=== PATIENT | female | born 1965 | race Caucasian/White ===

== ENCOUNTER 2023-05-25 23:00 | Emergency (ER) | payer OTHER, SELFPAY ==
[2023-05-25 23:04] VITALS: BP 176/99; PULSE 85; RESP 18; TEMP 36.4; O2SAT 87; BMI 21.1
--- NOTE | 2023-05-25 23:10 | XRR_ITS ---
PROCEDURE INFORMATION: Exam: XR Chest Exam date and time: 05/25/2023 11:16 PM Age: 58 years old Clinical indication: Shortness of breath; Additional info: SOB TECHNIQUE: Imaging protocol: Radiologic exam of the chest. Views: 1 view. COMPARISON: No relevant prior studies available. FINDINGS: Lungs: Hyperaerated lungs consistent with moderate to severe COPD . Pleural spaces: Unremarkable. No pleural effusion. No pneumothorax. Heart/Mediastinum: Unremarkable. No cardiomegaly. Bones/joints: Idiopathic S-shaped scoliosis. XR/XR chest 1V portable [id number] IMPRESSION: Hyperaerated lungs consistent with moderate to severe COPD .
--- NOTE | 2023-05-25 23:10 | ECG_ITS ---
[facility] Test Date: 2023-05-25 Pat Name: Esther Puckett Department: Room: Gender: Female Security Systems Specialist: : [id number] Requested By: Ruben Chan Order Number: [id number] Nneka MD: Trace Landers M.D. Measurements Intervals [place] Rate: 74 P: 82 NE: 131 QRS: 59 QRSD: 91 T: 57 QT: 383 QTc: 427 Interpretive Statements SINUS RHYTHM POSSIBLE LEFT ATRIAL ENLARGEMENT [-0.1mV P-WAVE IN V1/V2] SEPTAL MYOCARDIAL INFARCTION , OF INDETERMINATE AGE [40+ ms Q WAVE IN V1/V2] No previous ECG available for comparison Electronically Signed On 05-25-2023 23:36:59 CDT by Trace Landers M.D. [id number]
--- NOTE | 2023-05-25 23:16 | W.ED.GENADLT ---
HPI - General Adult General: Chief complaint: General Medical Stated complaint: high bp, fast HR Time Seen by Provider: 05/25/23 23:01 Source: patient Mode of arrival: ambulatory Limitations: no limitations History of Present Illness: 58-year-old female states that over the last week she has had a cough along with some nasal congestion. She was seen today diagnosed with viral URI but states her blood pressures also been running high and that this got her concerned. She denies any chest pain she has had some palpitations at times. Denies any vomiting or diarrhea. Associated symptoms: Deny chest pain, dyspnea, headache(s), nausea, rash or vomiting Review of Systems Const: Denies: fever(s), chills, body aches or change in appetite Eyes: Denies: eye discomfort ENMT: Reports: nasal congestion; Denies: throat pain or dental pain Card: Denies: chest pain Resp: Denies: dyspnea GI: Denies: abdominal pain, nausea, vomiting or diarrhea : Denies: dysuria Musc: Denies: neck pain or back pain Skin/Breast: Denies: rash Neuro: Denies: headache(s) PFSH ED PFSH: Social History Smoking and tobacco/nicotine status: current every day tobacco/nicotine user Physical Exam Const: COMMON NORMALS: no acute distress, patient oriented x3 and healthy appearing HENMT: COMMON NORMALS: normocephalic and atraumatic HEAD & SCALP: normocephalic and atraumatic Eye: COMMON NORMALS: Equal, round and reactive pupils present and EOMs intact bilaterally PUPIL: Yes Equal, round and reactive pupils present Neck/C-Spine: COMMON NORMALS: full ROM and supple Chest: COMMONS NORMALS: normal inspection of the chest and normal palpation of entire chest wall Resp: COMMON NORMALS: normal respiratory effort, No retractions, No use of accessory muscles and clear to auscultation bilaterally AUSCULTATION: clear to auscultation bilaterally Cardio: COMMON NORMALS: regular rate, regular rhythm and No murmurs present (Cardio) RATE: regular rate RHYTHM: regular rhythm GI: COMMON NORMALS: Normal to inspection, nondistended, normoactive bowel sounds present, Soft to palpation, non-tender and no masses PALPATION: Yes Soft to palpation Extremity: COMMON NORMALS: normal to inspection and full ROM Neuro: COMMON NORMALS: patient oriented x3, moves all extremities and no focal motor deficits Psych: COMMON NORMALS: mental status grossly normal, Normal thought process present and cooperative THOUGHT PROCESS: Normal thought process present Skin: COMMON NORMALS: no rashes or lesions noted and no wounds GENERAL SKIN EXAM: no rashes or lesions noted Course Vital Signs: Vital signs: Vital Signs Temperature 97.5 F L 05/25/23 23:04 Pulse Rate 82 05/26/23 00:06 Respiratory Rate 16 05/26/23 00:06 Blood Pressure 176/99 05/25/23 23:04 Pulse Oximetry 93 05/26/23 00:06 Oxygen Delivery Me thod Nasal Cannula 05/26/23 00:06 Oxygen Flow Rate 2 05/26/23 00:06 [facility] - General Adult Medical Decision Making Patient presents with hypertension her blood pressure here is improved blood work EKG and x-ray showed no acute abnormalities she likely has undiagnosed COPD she is a longtime smoker inform her she needs to try to quit smoking did discharge her on albuterol gave her Decadron here no signs of pneumonia we will get her follow-up with a PCP she is to take a log of her blood pressure as well return if worsening. Medical Records I reviewed the patient's medical records. Lab Data I reviewed the patient's lab results. 05/25/23 23:50 05/25/23 23:50 Radiology Impressions Chest X-Ray 05/25/23 23:10 IMPRESSION: Hyperaerated lungs consistent with moderate to severe COPD . Laboratory Results WBC 8.00 10^3/uL (3.29-11.43) 05/25/23 23:50 RBC 5.78 10^6/uL (3.85-5.65) H 05/25/23 23:50 Hgb 11.50 g/dL (11.27-16.99) 05/25/23 23:50 Hct 40.0 % (36-47) 05/25/23 23:50 MCV 69.2 fl (85-98) L 05/25/23 23:50 MCH 19.9 pg (27-33) L 05/25/23 23:50 MCHC 28.8 g/dL (30-55) L 05/25/23 23:50 RDW 20.7 % (12.1-15.1) H 05/25/23 23:50 Plt Count 248 10^3/cmm (157-399) 05/25/23 23:50 MPV 9.8 fL (7.4-10.4) 05/25/23 23:50 Neut % (Auto) 70.7 % 05/25/23 23:50 Lymph % (Auto) 20.3 % 05/25/23 23:50 [place] % (Auto) 7.4 % 05/25/23 23:50 Eos % (Auto) 0.9 % 05/25/23 23:50 Baso % (Auto) 0.6 % 05/25/23 23:50 Neut # (Auto) 5.66 10^3/uL (1.8-7.7) 05/25/23 23:50 Lymph # (Auto) 1.6 10^3/uL (0.8-4.8) 05/25/23 23:50 [place]ner # (Auto) 0.6 10^3/uL (0.2-0.9) 05/25/23 23:50 Eos # (Auto) 0.1 10^3/uL (0.0-0.8) 05/25/23 23:50 Baso # (Auto) 0.1 10^3/uL (0.0-0.1) 05/25/23 23:50 Nucleated RBC % (auto) 0 % 05/25/23 23:50 Nucleated RBCs # 0.0 /100WBC 05/25/23 23:50 Sodium 138 mmol/L (136-145) 05/25/23 23:50 Potassium 3.9 mmol/L (3.5-5.1) 05/25/23 23:50 Chloride 99 mmol/L (98-107) 05/25/23 23:50 Carbon Dioxide 31 mmol/L (22-29) H 05/25/23 23:50 Anion Gap 11.9 (5-19) 05/25/23 23:50 BUN 14 mg/dL (8-23) 05/25/23 23:50 Creatinine 0.8 mg/dL (0.5-0.9) 05/25/23 23:50 GFR Calculation 73.2 mL/min (90-130) L 05/25/23 23:50 Glucose 106 mg/dL (65-115) 05/25/23 23:50 Calculated Osmolality 287 mOsm/kg (285-295) 05/25/23 23:50 Calcium 9.7 mg/dL (8.5-10.5) 05/25/23 23:50 All radiology interpretation(s) finalized by discharge Discharge Plan Discharge Patient Disposition: Home Clinical Impression: Viral upper respiratory tract infection with cough, Hypertension Condition: Stable Prescriptions: New Norvasc 5 mg tablet 5 mg PO DAILY Qty: 30 0RF albuterol sulfate 90 mcg/actuation HFA aerosol inhaler 2 inh INHALATION Q6H PRN (Reason: shortness of breath or wheezing) Qty: 8 0RF Discharge Orders: Discharge ED (Routine); Ordered 05/26/23 Ordered By: Ruben Chan Discharge Diet: Advance as tolerated Discharge Activity: Resume usual activity Patient Instructions: Upper Respiratory Infection (ED), Hypertension (ED) Coding Level of Care Code ED [place] for Cara Blanton
[2023-05-25] MEDS: hyDRALAzine 20 mg/mL INJ 1 mL 10 MG IVP (23:53)
[2023-05-25 23:57] LABS: Basophils # 0.1 10^3/uL (0.0-0.1); Basophils % 0.6 %; Eosinophils # 0.1 10^3/uL (0.0-0.8); Eosinophils % 0.9 %; Lymphocytes # 1.6 10^3/uL (0.8-4.8); Lymphocytes % 20.3 %; Mean Corpuscular HGB Conc 28.8 g/dL (30-55); Mean Corpuscular Hemoglobin 19.9 pg (27-33); Mean Corpuscular Volume 69.2 fl (85-98); Mean Platelet Volume 9.8 fL (7.4-10.4); Monocytes # 0.6 10^3/uL (0.2-0.9); Monocytes % 7.4 %; Neutrophils # 5.66 10^3/uL (1.8-7.7); Neutrophils % 70.7 %; Nucleated Red Blood Cells % 0 %; Platelet Count 248 10^3/cmm (157-399); Red Blood Count 5.78 10^6/uL (3.85-5.65); Red Cell Distribution Width 20.7 % (12.1-15.1)
[2023-05-25] MEDS: dexamethasone 10 mg/mL INJ IVP (23:57)
[2023-05-26 00:06] VITALS: PULSE 82; RESP 16; O2SAT 93
[2023-05-26] MEDS: albuterol 8 gm MDI 2 PUFF INHALATION (00:06)
[2023-05-26 00:14] LABS: Anion Gap 11.9 (5-19); Blood Urea Nitrogen 14 mg/dL (8-23); Calcium 9.7 mg/dL (8.5-10.5); Carbon Dioxide 31 mmol/L (22-29); Chloride 99 mmol/L (98-107); Glomerular Filtration Rate 73.2 mL/min (90-130); Glucose 106 mg/dL (65-115); Osmolality Calculated 287 mOsm/kg (285-295); Potassium 3.9 mmol/L (3.5-5.1); Sodium 138 mmol/L (136-145)
--- NOTE | 2023-05-26 00:29 | PC.NURSE ---
pt was put on 2LNC upon arrival d/t being in the high 80's in triage. pt is on 3L and is satting at 91%.
[2023-05-26 00:49] VITALS: BP 145/63; O2SAT 91
--- NOTE | 2023-05-27 08:09 | DCPLANNER ---
Sent message to [facility] for follow up to establish a PCP.
== END 2023-05-26 00:53 | disposition home or self-care (01) ==
PROVIDERS: Emergency Provider Emergency Medicine
DX: J06.9 Acute upper respiratory infection, unspecified (principal); R05.9 Cough, unspecified; I10 Essential (primary) hypertension; Z72.0 Tobacco use
CPT/HCPCS: 71045; 80048; 85025; 93005; 94640; 99285; J0360; J1100; J3535

== ENCOUNTER 2023-06-17 13:05 | Outpatient (CLI) | payer OTHER, SELFPAY ==
--- NOTE | 2023-06-17 13:18 | MM_ITS ---
WS: [id number] BILATERAL 3D TOMOSYNTHESIS DIGITAL SCREENING MAMMOGRAPHY WITH CAD CLINICAL INFORMATION: screen HISTORY: Screening mammogram. No current complaints. COMPARISON: Baseline TECHNIQUE: Bilateral CC and MLO views. FINDINGS: Scattered fibroglandular densities bilaterally. No suspicious focal mass, asymmetry, calcifications, or architectural distortion. No evidence of malignancy. A few tiny incidental punctate calcifications from IMPRESSION: MM/[place] [id number] BI-RADS: 2-Benign FOLLOW UP: 1 Year Follow-up Recommend return to annual screening mammography.
== END 2023-06-17 13:06 | disposition home or self-care (01) ==
LOC: RAD 13:05
PROVIDERS: Visit Provider Family Medicine Adult Medicine
DX: Z12.31 Encounter for screening mammogram for malignant neoplasm of breast (principal)
CPT/HCPCS: 77063; 77067

== ENCOUNTER → 2023-07-03 08:21 | Outpatient (BNVA) | payer OTHER, SELFPAY | PROVIDERS: PCP Family Medicine Adult Medicine; Visit Provider Family Medicine Adult Medicine | DX: I10 Essential (primary) hypertension (principal); R71.8 Other abnormality of red blood cells; R59.0 Localized enlarged lymph nodes; Z87.891 Personal history of nicotine dependence; J43.1 Panlobular emphysema | CPT/HCPCS: 80053; 80061; 82607; 82728; 82746; 84443; 85007; 85027 ==

== ENCOUNTER → 2023-10-08 08:03 | Outpatient (BNVA) | payer OTHER, SELFPAY | PROVIDERS: PCP Family Medicine Adult Medicine; Visit Provider Family Medicine Adult Medicine | DX: R79.89 Other specified abnormal findings of blood chemistry (principal); I10 Essential (primary) hypertension | CPT/HCPCS: 84443 ==

== ENCOUNTER 2024-11-09 12:09 | Outpatient (CLI) | payer OTHER, SELFPAY ==
--- NOTE | 2024-11-09 12:24 | CT_ITS ---
WS: [id number] LDCT LUNG CANCER SCREENING HISTORY: HX OF TOBACCO USE TECHNIQUE: Axial imaging performed from the apices to 1 cm below the costophrenic angles. Coronal and sagittal reformats are submitted with axial MIP series. All CT scans at [facility] use at least one of these dose optimization techniques: automated exposure control; mA and/or kV adjustment per patient size (includes targeted exams where dose is matched to clinical indication); or iterative reconstruction. DLP: 46.39 mGy.cm DIvol: Mean CTDIvol: 0.70 (mGy) COMPARISON: None available. Diagnostic quality: Satisfactory Lungs: Marked pulmonary hyperinflation. Linear areas of atelectasis medial RIGHT upper lobe and in the anterior LEFT lower lobe. Bronchial wall thickening and mild bronchiectasis medial RIGHT middle lobe. No mass. No endobronchial lesions. Heart: Normal size heart with no pericardial effusion.. Other findings: Mild atherosclerosis aorta. No mediastinal or hilar adenopathy. No adrenal mass. CT/CT lung screening [id number] IMPRESSION: LUNG-RADS: 1-Negative FOLLOW UP: 12 Month: Continue annual screening with LDCT OTHER FINDINGS (S MODIFIER): None.
--- NOTE | 2024-11-09 12:24 | MM_ITS ---
WS: [id number] BILATERAL 3D TOMOSYNTHESIS DIGITAL SCREENING MAMMOGRAPHY WITH CAD CLINICAL INFORMATION: SCREENING HISTORY: Screening mammogram. No current complaints. COMPARISON: 2022 TECHNIQUE: Bilateral CC and MLO views. FINDINGS: Scattered fibroglandular densities bilaterally. No suspicious focal mass, asymmetry, calcifications, or architectural distortion. No evidence of malignancy. MM/MM scr BI tomosynthesis [id number] IMPRESSION: DENSITY: There are scattered areas of fibroglandular density. BI-RADS: 1 - Negative. FOLLOW UP: 1 Year Follow-up Recommend return to annual screening mammography.
== END 2024-11-09 12:10 | disposition home or self-care (01) ==
PROVIDERS: PCP Family Medicine Adult Medicine; Visit Provider Electrodiagnostic Medicine
DX: Z12.31 Encounter for screening mammogram for malignant neoplasm of breast (principal); Z12.2 Encounter for screening for malignant neoplasm of respiratory organs; R92.323 Mammographic fibroglandular density, bilateral breasts; R91.8 Other nonspecific abnormal finding of lung field; J98.11 Atelectasis; J98.4 Other disorders of lung; J47.9 Bronchiectasis, uncomplicated; I70.0 Atherosclerosis of aorta
CPT/HCPCS: 71271; 77063; 77067